=== PATIENT | male | born 1950 | race Caucasian/White ===

== ENCOUNTER 2017-10-05 11:36 | Emergency (ER) | payer MEDICARE, OTHER ==
[~2017-10-05] VITALS: Ht 182.9 cm; Wt 104.3 kg
[~2017-10-05 11:36] MED LIST: ASPIRIN325 PO; ATORVASTATIN CA40 MG PO; BISTOLIC; BYSTOLIC10 MG PO; CARVEDILOL12.5 MG PO; CATAPRES0.1 MG PO; CEPHALEXIN 250250 M1 PO; CLONIDINE0.1 PO; COREG6.25 MG PO; COZAAR 25 MG TA25 M1 PO; FENOFIBRATE160 MG PO; FINASTERIDE5 MG PO; FLOMAX0.4 MG PO; FOLIC ACID1 MG PO; HYDRALAZINE 2525 MG PO; HYDROCODON-ACE1 EAC7 PO; HYZAAR 100-251 EACH PO; IBUPROFEN 800800 M1 PO; KEFLEX500 MG PO; MAXZIDE-25 MG1 EACH PO; NORCO 5-325 TA1 EACH PO; OMEPRAZOLE; OMEPRAZOLE20 M2 PO; PRILOSEC 20 MG20 MG PO; SYMBYAX 3-25 M1 EACH PO; TRINATE TABLET1 TAB PO; TYLENOL325 MG PO; VITAMIN B-1100 M1 PO
[2017-10-05] MEDS ORDERED: PROZAC20 MG PO (11:58)
[2017-10-05 14:45] LABS: ABSOLUTE EOSINOPHILS 0.1 thou/uL (0.0-0.7); ABSOLUTE LYMPHOCYTES 0.8 thou/uL (0.8-5.3); ABSOLUTE MONOCYTES 0.8 thou/uL (0.0-1.2); ABSOLUTE NEUTROPHILS 5.4 thou/uL (1.6-8.1); BASOPHILS 0.5 %; EOSINOPHILS 1.4 %; HEMATOCRIT 45.9 % (42.0-52.0); HEMOGLOBIN 15.9 gm/dL (14.0-18.0); LYMPHOCYTES 11.1 %; MCH 35.1 pg (26.0-34.0); MCHC 34.6 g/dL (28.0-37.0); MCV 101.5 fL (80.0-100.0); MPV 7.2 fl. (7.2-11.1); NUCLEATED RBCS 0 /100WBC; PLATELET COUNT* 162 thou/uL (150-400); RBC 4.53 mil/uL (4.50-6.00); RDW-CV 13.4 % (10.5-14.5); WBC 7.1 thou/uL (4.0-11.0)
[2017-10-05 14:55] LABS: ALBUMIN 3.5 g/dL (3.4-5.0); CALCIUM 9.1 mg/dL (8.5-10.1); CREATININE 0.9 mg/dL (0.6-1.3); TOTAL BILIRUBIN 0.9 mg/dL (<0.1-1.0); TOTAL PROTEIN 7.1 g/dL (6.4-8.2)
[2017-10-05] MEDS ORDERED: NORCO 5-325 TA1 EACH PO (17:13)
[2017-10-05] MEDS ORDERED: VALIUM5 MG PO (17:23)
[2017-10-05] MEDS ORDERED: PERCOCET 7.5-31 EACH PO (17:23)
[2017-10-05 17:57] VITALS: BP 169/116
--- NOTE | 2017-10-22 17:34 | CON ---
[address] [address] CONSULTATION Name: LACHELLE PATINO Room: [facility] Ame#: [id number] Admission: 10/05/17 Attend Phys: Discharge: 10/05/17 Date of : 52 Report #: [id number] THIS REPORT FOR: //name// CC: Doug Henry DICTATED BY: Grace STERLING DATE OF SERVICE: 10/05/2017 REASON FOR CONSULTATION: Abdominal aortic aneurysm. HISTORY OF PRESENT ILLNESS: The patient is a very pleasant 66-year-old male who presented to the emergency department today with complaints of left hip and anterior thigh pain. He reports he has some difficulty with labile blood pressure. He does fall at times with hypotension. He fell last Wednesday and since that time has had some pain in his left anterior thigh. He describes the pain as a throbbing that is constant. He denies any pain, numbness or tingling in his lower leg or foot. X-rays of the lumbar spine, hip, and pelvis were obtained, which identified an abdominal aortic aneurysm. A CTA of the chest, abdomen, and pelvis was subsequently obtained, which demonstrates a 5.5 x 5.6 cm infrarenal abdominal aortic aneurysm. We have been asked to evaluate the patient and give our opinion regarding these findings. He does report having previous knowledge of his aneurysm. States it was initially found while undergoing imaging with his urologist, . He is also followed with Dr. Pink regularly, who is aware of his aneurysm. He denies any abdominal pain currently. We have been asked to evaluate the patient and give our opinion regarding his abdominal aortic aneurysm. He denies any chest pain, nausea, vomiting, fevers, chills or shortness of breath. PAST MEDICAL HISTORY: 1. Abdominal aortic aneurysm. 2. Hypertension. 3. History of alcohol abuse. 4. Acid reflux. 5. Appendectomy. 6. Chronic back pain. 7. History of seizures. 8. Hyperlipidemia. 9. Prostate issues. 10. 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 11. Orthostatic hypotension. PAST SURGICAL HISTORY: 1. Back surgery. 2. [place] [address] CONSULTATION Name: LACHELLE PATINO [id number] Admission: 10/05/17 Attend Phys: Discharge: 10/05/17 Date of : 52 Report #: [id number] ALLERGIES: No known drug allergies. HOME MEDICATIONS: 1. Symbyax 3/25 mg capsule, 2-1/2 at bedtime. 2. Lipitor 80 mg daily. 3. Coreg 25 mg twice daily. 4. Maxzide 25 mg daily. 5. Omeprazole 20 mg daily. 6. Cozaar 50 mg daily. 7. Aspirin 325 mg daily. 8. Finasteride 5 mg daily. 9. Prozac 20 mg daily. 10. Flomax 0.4 mg daily. FAMILY HISTORY: He denies any history of aneurysms. SOCIAL HISTORY: He is a one-half pack per day smoker. He reports he drinks 4 to 5 beers daily, no illicit drug use. REVIEW OF SYSTEMS: A 12-point review of systems has been reviewed and is negative except for the above-mentioned in the history of present illness. PHYSICAL EXAMINATION: VITAL SIGNS: Temperature 36.2, heart rate 55, respiratory rate 19, blood pressure 196/119. Oxygen saturation 99% on room air. GENERAL: He is alert, oriented, in no acute distress. HEENT: Head is normocephalic, atraumatic. NECK: Supple, without jugular venous distention or carotid bruit. HEART: Bradycardia, no murmurs noted. CHEST: Lungs are clear to auscultation bilaterally. ABDOMEN: Soft, nontender, positive bowel sounds. No palpable abdominal mass noted. EXTREMITIES: Palpable bilateral radial, femoral, and dorsalis pedis pulses. He has palpable varicosities in the left lower extremity. NEUROLOGIC: He is alert, oriented, with no focal neurologic deficits. LABORATORY DATA: Hemoglobin 15.9, hematocrit 45.9, white blood cell count 7.1, platelets 162. Sodium 130, potassium 4.0, chloride 96, CO2 27, BUN 7, creatinine 0.9, glucose is 94. ASSESSMENT AND PLAN: 1. Abdominal aortic aneurysm measuring 5.5 x 5.6 cm in maximum diameter. This is currently asymptomatic. He has no abdominal pain, no abdominal tenderness. He is okay to discharge to home. He has followup scheduled with Dr. Reinier Patel in outpatient clinic on Wednesday at 11:30 [place] [address] CONSULTATION Name: LACHELLE PATINO Room: [facility] Ame#: [id number] Admission: 10/05/17 Attend Phys: Discharge: 10/05/17 Date of : 52 Report #: [id number] had a long discussion with the patient and his about endovascular abdominal aortic aneurysm repair, risks, benefits, preoperative, and postoperative expectations. He is agreeable to proceeding with repair when recommended. 2. Tobaccoism. I discussed the importance of smoking cessation. He is somewhat hesitant to quitting at this time. 3. Hypertension with somewhat labile blood pressures. He follows regularly with Dr. Pink. 4. Left lower extremity pain following a recent fall. X-rays are negative for any acute injury. We thank you for the opportunity to participate in the care of the patient. Please feel free to contact our office with any questions or concerns. <ELECTRONICALLY SIGNED> By: Willian Simmons DO 10/22/17 1734 [id number] Patel MD /leslie
== END 2017-10-05 18:00 | disposition home or self-care (01) ==
LOC: M.ERS 11:36
PROVIDERS: Personal Emergency Response Attendant
DX: I71.4 Abdominal aortic aneurysm, without rupture (principal); M54.5 Low back pain; M25.552 Pain in left hip; I10 Essential (primary) hypertension; K21.9 Gastro-esophageal reflux disease without esophagitis; E78.5 Hyperlipidemia, unspecified; F17.210 Nicotine dependence, cigarettes, uncomplicated; Z90.49 Acquired absence of other specified parts of digestive tract

== ENCOUNTER → 2020-12-10 | Outpatient (CLI) | payer MEDICARE, OTHER ==
[~2020-12-10] MED LIST changes: +PERCOCET 7.5-31 EACH PO; +PROZAC20 MG PO; +VALIUM5 MG PO
[2020-12-10 11:07] LABS: CALCIUM 8.6 mg/dL (8.5-10.1); CREATININE 1.2 mg/dL (0.6-1.3)
== END ==
LOC: M.LAB 10:44
PROVIDERS: ATTEND Registered Nurse
DX: I10 Essential (primary) hypertension (principal)